=== PATIENT | female | born 1990 | race American Indian/Alaskan Native ===

== ENCOUNTER 2020-06-21 08:23 | Inpatient (IN) | payer MEDICAID ==
--- NOTE | 2020-06-21 08:34 | History and Physical Report ---
History of Present Illness Date of examination: 06/21/20 Chief complaint: TOLAC History of present illness: 29-year-old -0-1-4 at 39-5/7 weeks for trial of labor after section. Patient doing well with no OB complaints. She reports good movement with no loss of fluid contractions or vaginal bleeding. Informed consent was taken at bedside; patient was consented about risks benefits possible complications as well as alternatives to trial of labor after section to include but not limited to maternal and . Past History Past Surgical History: section [employer] History: chlamydia Social history: no significant social history - Obstetrical History Expected Date of Delivery: 06/23/20 Actual Gestation: 39 Week(s) 5 Day(s) : 6 Para: 4 Spontaneous Abortions: 1 Number of Living Children: 4 Medications and Allergies Allergies Allergy/AdvReac Type Severity Reaction Status Date / Time No Known Allergies Allergy Unverified 06/10/20 09:28 Home Medications Medication Instructions Recorded Confirmed Last Taken Type No Known Home Medications [No 06/21/20 06/21/20 Unknown History Reported Home Medications] Results Result Diagrams: 06/21/20 10:25 All other labs normal. Assessment and Plan IUP at 39-5/7 weeks, trial of labor after section Previous x1 Previous section x1 History of chlamydia Plan Admission Lab to include CBC and type and screen Ultrasound to confirm cephalic presentation Epidural prior to AROM and Pitocin Continuous monitoring Maternal wellbeing reassuring at bedside Cherelle Walter MD
[2020-06-21] MEDS ORDERED: ePHEDrine SULFATE 50 MG/1 ML INJ IV PRN (08:38)
[2020-06-21] MEDS ORDERED: TERBUTALINE 1 MG/1 ML INJ SUB-Q PRN (08:38)
[2020-06-21] MEDS ORDERED: LIDOCAINE (2%) 20 MG/1 ML VIAL 20 ML MDV INFILTRATI NR (08:38)
[2020-06-21] MEDS ORDERED: ONDANSETRON 4 MG/2 ML INJ IV PRN (08:38)
[2020-06-21] MEDS ORDERED: BUTORPHANOL 2 MG/1 ML INJ IV PRN ×2 (09:00)
[2020-06-21] MEDS ORDERED: fentaNYL 100 MCG/2 ML INJ IV PRN (09:00)
[2020-06-21] MEDS ORDERED: OXYTOCIN DRIP 30 UNITS/500 ML BAG IV SCH ×2 (09:00)
--- NOTE | 2020-06-21 10:08 | Ultrasound Report ---
ULTRASOUND OBSTETRIC LIMITED INDICATION / CLINICAL INFORMATION: presentation. TECHNIQUE: Transabdominal ultrasound imaging. COMPARISON: 06/10/2020 FINDINGS: HEART RATE (beats per minute): 134 AMNIOTIC FLUID INDEX (cm) = not measured PRESENTATION: Cephalic. ADDITIONAL FINDINGS: None. IMPRESSION: Cephalic presentation. Signer Name: Can Ray Jr, MD Signed: 06/21/2020 10:04 AM Workstation Name: [id number]
[2020-06-21] MEDS: LACTATED RINGERS 1,000 ML IV SCH ×4 (10:20→23:20)
[2020-06-21 11:09] LABS: Hematocrit 33.3 % (30.3-42.9); Hemoglobin 11.4 gm/dl (10.1-14.3); Mean Corpuscular HGB Conc 34 % (30-34); Mean Corpuscular Volume 88 fl (79-97); Platelet Count 283 K/mm3 (140-440); Red Cell Distribution Width 13.7 % (13.2-15.2)
[2020-06-21] MEDS ORDERED: NalbUPHINE 10 MG/1 ML INJ IV PRN (12:11)
[2020-06-21] MEDS ORDERED: NALOXONE 2 MG/2 ML INJ IV PRN (12:11)
--- NOTE | 2020-06-21 13:20 | Anesthesia Consultation ---
Anesthesia Consult and Med Hx Date of service: 06/21/20 - Airway Anesthetic Teeth Evaluation: Good ROM Head & Neck: Adequate Mental/Hyoid Distance: Adequate Mallampati Class: Class III Intubation Access Assessment: Possibly Difficult - Pulmonary Exam CTA: Yes - Cardiac Exam Cardiac Exam: RRR - Pre-Operative Health Status ASA Pre-Surgery Classification: ASA2, ASA3 Proposed Anesthetic Plan: Epidural - Pulmonary Hx Smoking: Yes Hx Asthma: No Hx Sleep Apnea: No - Cardiovascular System Hx Hypertension: No Hx Heart Attack/AMI: No Hx Angina: No - Central Nervous System Hx Seizures: No Hx Psychiatric Problems: No - Gastrointestinal Hx Gastroesophageal Reflux Disease: No - Endocrine Hx Renal Disease: No Hx Insulin Dependent Diabetes: No Hx Non-Insulin Dependent Diabetes: No Hx Hypothyroidism: No Hx Hyperthyroidism: No - Hematic Hx Anemia: No Hx Sickle Cell Disease: No - Other Systems Hx Alcohol Use: No Hx Obesity: Yes
--- NOTE | 2020-06-21 13:20 | Progress Note ---
Labor Epidural - Labor Epidural Start Time: 13:00 Stop Time: 13:15 Performed by:: ROYER HESTER ([facility]) Procedure: Patient is requesting epidural for labor and pain. H&P, labs were reviewed. Patient IDed, H&P reviewed, all questions and concerns were answered, and consent was signed. Timeout was performed at bedside. Patient in sitting position. Sterile prep and drape was performed. 3ml of 1% lidocaine skin wheal at L[3]- L [4]. 18-gauge Tuohy epidural needle was advanced to loss of resistance with air technique 10cm. Negative CSF negative blood. Epidural catheter advanced to [15] centimeters. [negative] Aspiration [negative] test dose. Sterile dressing applied. Patient tolerated procedure.
[2020-06-21] MEDS: fentaNYL-BUPIV 2 MCG/ML-0.125% 200 MCG/100 ML BAG EPIDURAL SCH (17:41)
--- NOTE | 2020-06-21 18:53 | Progress Note ---
Subjective - Subjective Date of service: 06/21/20 Interval history: AROM clear cervix 3cm/50/-3 vertex plan to continue oxyocin per protocol FHT 120bpm baseline,moderate variability, +ve accelerations Cherelle Walter MD Objective - Vital Signs Vital Signs: Vital Signs - 12hr 06/21/20 06/21/20 06/21/20 09:06 09:09 12:58 Temperature 98.4 F Pulse Rate 103 H 103 H 112 H Respiratory 16 Rate Blood Pressure 116/64 Blood Pressure 116/64 [Left] O2 Sat by Pulse 97 17 L 100 Oximetry 06/21/20 06/21/20 06/21/20 12:59 13:01 13:03 Temperature Pulse Rate 106 H 114 H Respiratory Rate Blood Pressure 121/63 Blood Pressure 121/63 [Left] O2 Sat by Pulse 100 Oximetry 06/21/20 06/21/20 06/21/20 13:04 13:08 13:09 Temperature Pulse Rate 114 H 110 H 109 H Respiratory Rate Blood Pressure 125/73 129/76 Blood Pressure [Left] O2 Sat by Pulse 100 Oximetry 06/21/20 06/21/20 06/21/20 13:13 13:14 13:18 Temperature Pulse Rate 108 H 102 H 112 H Respiratory Rate Blood Pressure 127/66 131/68 Blood Pressure [Left] O2 Sat by Pulse 100 100 Oximetry 06/21/20 06/21/20 06/21/20 13:20 13:23 13:25 Temperature Pulse Rate 103 H 107 H 110 H Respiratory Rate Blood Pressure 119/57 117/55 Blood Pressure [Left] O2 Sat by Pulse 100 Oximetry 06/21/20 06/21/20 06/21/20 13:28 13:31 13:33 Temperature Pulse Rate 106 H 106 H 104 H Respiratory Rate Blood Pressure 118/60 Blood Pressure [Left] O2 Sat by Pulse 100 100 Oximetry 06/21/20 06/21/20 06/21/20 13:35 13:38 13:43 Temperature Pulse Rate 111 H 109 H 103 H Respiratory Rate Blood Pressure 132/62 Blood Pressure [Left] O2 Sat by Pulse 100 100 Oximetry 06/21/20 06/21/20 06/21/20 13:48 13:53 13:58 Temperature Pulse Rate 100 H 100 H 97 H Respiratory Rate Blood Pressure 125/61 Blood Pressure [Left] O2 Sat by Pulse 100 100 99 Oximetry 06/21/20 06/21/20 06/21/20 14:03 14:07 14:08 Temperature Pulse Rate 95 H 93 H 94 H Respiratory Rate Blood Pressure 122/58 Blood Pressure [Left] O2 Sat by Pulse 99 99 Oximetry 06/21/20 06/21/20 06/21/20 14:13 14:18 14:23 Temperature Pulse Rate 93 H 93 H 92 H Respiratory Rate Blood Pressure 116/59 Blood Pressure [Left] O2 Sat by Pulse 99 97 98 Oximetry 06/21/20 06/21/20 06/21/20 14:28 14:33 14:38 Temperature Pulse Rate 96 H 101 H 100 H Respiratory Rate Blood Pressure Blood Pressure [Left] O2 Sat by Pulse 99 99 99 Oximetry 06/21/20 06/21/20 06/21/20 14:39 14:43 14:48 Temperature Pulse Rate 98 H 98 H 95 H Respiratory Rate Blood Pressure 118/56 Blood Pressure [Left] O2 Sat by Pulse 99 98 Oximetry 06/21/20 06/21/20 06/21/20 14:52 14:59 15:04 Temperature Pulse Rate 98 H 97 H 99 H Respiratory Rate Blood Pressure 114/56 Blood Pressure [Left] O2 Sat by Pulse 99 98 Oximetry 06/21/20 06/21/20 06/21/20 15:09 15:14 15:19 Temperature Pulse Rate 101 H 99 H 92 H Respiratory Rate Blood Pressure 121/59 Blood Pressure [Left] O2 Sat by Pulse 99 98 99 Oximetry 06/21/20 06/21/20 06/21/20 15:24 15:26 15:29 Temperature Pulse Rate 93 H 100 H 92 H Respiratory Rate Blood Pressure 128/58 Blood Pressure [Left] O2 Sat by Pulse 100 94 99 Oximetry 06/21/20 06/21/20 06/21/20 15:34 15:38 15:39 Temperature Pulse Rate 98 H 91 H 103 H Respiratory Rate Blood Pressure 109/56 Blood Pressure [Left] O2 Sat by Pulse 100 99 Oximetry 06/21/20 06/21/20 06/21/20 15:44 15:47 15:49 Temperature 98.5 F Pulse Rate 94 H 90 Respiratory Rate Blood Pressure Blood Pressure [Left] O2 Sat by Pulse 97 99 Oximetry 06/21/20 06/21/20 06/21/20 15:53 15:54 15:59 Temperature Pulse Rate 91 H 100 H 97 H Respiratory Rate Blood Pressure 128/62 Blood Pressure [Left] O2 Sat by Pulse 100 98 Oximetry 06/21/20 06/21/20 06/21/20 16:04 16:07 16:09 Temperature Pulse Rate 98 H 95 H 97 H Respiratory Rate Blood Pressure 112/58 Blood Pressure [Left] O2 Sat by Pulse 98 97 Oximetry 06/21/20 06/21/20 06/21/20 16:14 16:19 16:22 Temperature Pulse Rate 88 99 H 94 H Respiratory Rate Blood Pressure 110/57 Blood Pressure [Left] O2 Sat by Pulse 99 100 Oximetry 06/21/20 06/21/20 06/21/20 16:24 16:29 16:34 Temperature Pulse Rate 95 H 94 H 86 Respiratory Rate Blood Pressure Blood Pressure [Left] O2 Sat by Pulse 99 100 100 Oximetry 06/21/20 06/21/20 06/21/20 16:37 16:39 16:44 Temperature Pulse Rate 91 H 90 94 H Respiratory Rate Blood Pressure 115/55 Blood Pressure [Left] O2 Sat by Pulse 100 99 Oximetry 06/21/20 06/21/20 06/21/20 16:49 16:52 16:54 Temperature Pulse Rate 92 H 93 H 93 H Respiratory Rate Blood Pressure 111/57 Blood Pressure [Left] O2 Sat by Pulse 99 100 Oximetry 06/21/20 06/21/20 06/21/20 16:59 17:04 17:07 Temperature Pulse Rate 90 93 H 92 H Respiratory Rate Blood Pressure 108/52 Blood Pressure [Left] O2 Sat by Pulse 100 100 Oximetry 06/21/20 06/21/20 06/21/20 17:09 17:14 17:19 Temperature Pulse Rate 92 H 91 H 94 H Respiratory Rate Blood Pressure Blood Pressure [Left] O2 Sat by Pulse 99 100 100 Oximetry 06/21/20 06/21/20 06/21/20 17:23 17:24 17:29 Temperature Pulse Rate 91 H 94 H 98 H Respiratory Rate Blood Pressure 114/56 Blood Pressure [Left] O2 Sat by Pulse 100 100 Oximetry 06/21/20 06/21/20 06/21/20 17:34 17:39 17:44 Temperature Pulse Rate 107 H 116 H 98 H Respiratory Rate Blood Pressure Blood Pressure [Left] O2 Sat by Pulse 100 100 100 Oximetry 06/21/20 06/21/20 06/21/20 17:49 17:53 17:54 Temperature Pulse Rate 107 H 101 H 105 H Respiratory Rate Blood Pressure 130/60 Blood Pressure [Left] O2 Sat by Pulse 100 100 Oximetry 06/21/20 06/21/20 06/21/20 17:59 18:04 18:07 Temperature Pulse Rate 116 H 108 H 116 H Respiratory Rate Blood Pressure 119/54 Blood Pressure [Left] O2 Sat by Pulse 98 97 Oximetry 06/21/20 06/21/20 06/21/20 18:09 18:14 18:19 Temperature Pulse Rate 117 H 111 H 103 H Respiratory Rate Blood Pressure Blood Pressure [Left] O2 Sat by Pulse 98 98 97 Oximetry 06/21/20 06/21/20 06/21/20 18:23 18:24 18:29 Temperature Pulse Rate 96 H 103 H 101 H Respiratory Rate Blood Pressure 116/54 Blood Pressure [Left] O2 Sat by Pulse 97 98 Oximetry 06/21/20 06/21/20 06/21/20 18:34 18:37 18:39 Temperature Pulse Rate 96 H 99 H 102 H Respiratory Rate Blood Pressure 94/59 Blood Pressure [Left] O2 Sat by Pulse 97 100 Oximetry 06/21/20 18:47 Temperature Pulse Rate 100 H Respiratory Rate Blood Pressure Blood Pressure [Left] O2 Sat by Pulse 100 Oximetry - Labs Labs: Laboratory Results - last 24 hr 06/21/20 06/21/20 10:25 10:25 WBC 8.7 RBC 3.80 Hgb 11.4 Hct 33.3 MCV 88 MCH 30 MCHC 34 RDW 13.7 Plt Count 283 Blood Type A POSITIVE Antibody Screen Negative
[2020-06-21] MEDS ORDERED: MINERAL OIL 30 ML ORAL LIQD PO PRN (22:00)
[2020-06-22] MEDS: fentaNYL-BUPIV 2 MCG/ML-0.125% 200 MCG/100 ML BAG EPIDURAL SCH (01:49)
--- NOTE | 2020-06-22 01:53 | Progress Note ---
Subjective - Subjective Date of service: 06/22/20 Interval history: cervix 3cm/60/-3 IUPC placed with no complications. [place];irregular. continue to increase oxytocin as per protocol. FHT 120bpm baseline,moderate variability, +ve accelerations Cherelle Walter MD Objective - Vital Signs Vital Signs: Vital Signs - 12hr 06/21/20 06/21/20 06/21/20 13:53 13:58 14:03 Temperature Pulse Rate 100 H 97 H 95 H Blood Pressure 125/61 O2 Sat by Pulse 100 99 99 Oximetry 06/21/20 06/21/20 06/21/20 14:07 14:08 14:13 Temperature Pulse Rate 93 H 94 H 93 H Blood Pressure 122/58 O2 Sat by Pulse 99 99 Oximetry 06/21/20 06/21/20 06/21/20 14:18 14:23 14:28 Temperature Pulse Rate 93 H 92 H 96 H Blood Pressure 116/59 O2 Sat by Pulse 97 98 99 Oximetry 06/21/20 06/21/20 06/21/20 14:33 14:38 14:39 Temperature Pulse Rate 101 H 100 H 98 H Blood Pressure 118/56 O2 Sat by Pulse 99 99 Oximetry 06/21/20 06/21/20 06/21/20 14:43 14:48 14:52 Temperature Pulse Rate 98 H 95 H 98 H Blood Pressure 114/56 O2 Sat by Pulse 99 98 Oximetry 06/21/20 06/21/20 06/21/20 14:59 15:04 15:09 Temperature Pulse Rate 97 H 99 H 101 H Blood Pressure 121/59 O2 Sat by Pulse 99 98 99 Oximetry 06/21/20 06/21/20 06/21/20 15:14 15:19 15:24 Temperature Pulse Rate 99 H 92 H 93 H Blood Pressure 128/58 O2 Sat by Pulse 98 99 100 Oximetry 06/21/20 06/21/20 06/21/20 15:26 15:29 15:34 Temperature Pulse Rate 100 H 92 H 98 H Blood Pressure O2 Sat by Pulse 94 99 100 Oximetry 06/21/20 06/21/20 06/21/20 15:38 15:39 15:44 Temperature Pulse Rate 91 H 103 H 94 H Blood Pressure 109/56 O2 Sat by Pulse 99 97 Oximetry 06/21/20 06/21/20 06/21/20 15:47 15:49 15:53 Temperature 98.5 F Pulse Rate 90 91 H Blood Pressure 128/62 O2 Sat by Pulse 99 Oximetry 06/21/20 06/21/20 06/21/20 15:54 15:59 16:04 Temperature Pulse Rate 100 H 97 H 98 H Blood Pressure O2 Sat by Pulse 100 98 98 Oximetry 06/21/20 06/21/20 06/21/20 16:07 16:09 16:14 Temperature Pulse Rate 95 H 97 H 88 Blood Pressure 112/58 O2 Sat by Pulse 97 99 Oximetry 06/21/20 06/21/20 06/21/20 16:19 16:22 16:24 Temperature Pulse Rate 99 H 94 H 95 H Blood Pressure 110/57 O2 Sat by Pulse 100 99 Oximetry 06/21/20 06/21/20 06/21/20 16:29 16:34 16:37 Temperature Pulse Rate 94 H 86 91 H Blood Pressure 115/55 O2 Sat by Pulse 100 100 Oximetry 06/21/20 06/21/20 06/21/20 16:39 16:44 16:49 Temperature Pulse Rate 90 94 H 92 H Blood Pressure O2 Sat by Pulse 100 99 99 Oximetry 06/21/20 06/21/20 06/21/20 16:52 16:54 16:59 Temperature Pulse Rate 93 H 93 H 90 Blood Pressure 111/57 O2 Sat by Pulse 100 100 Oximetry 06/21/20 06/21/20 06/21/20 17:04 17:07 17:09 Temperature Pulse Rate 93 H 92 H 92 H Blood Pressure 108/52 O2 Sat by Pulse 100 99 Oximetry 06/21/20 06/21/20 06/21/20 17:14 17:19 17:23 Temperature Pulse Rate 91 H 94 H 91 H Blood Pressure 114/56 O2 Sat by Pulse 100 100 Oximetry 06/21/20 06/21/20 06/21/20 17:24 17:29 17:34 Temperature Pulse Rate 94 H 98 H 107 H Blood Pressure O2 Sat by Pulse 100 100 100 Oximetry 06/21/20 06/21/20 06/21/20 17:39 17:44 17:49 Temperature Pulse Rate 116 H 98 H 107 H Blood Pressure O2 Sat by Pulse 100 100 100 Oximetry 06/21/20 06/21/20 06/21/20 17:53 17:54 17:59 Temperature Pulse Rate 101 H 105 H 116 H Blood Pressure 130/60 O2 Sat by Pulse 100 98 Oximetry 06/21/20 06/21/20 06/21/20 18:04 18:07 18:09 Temperature Pulse Rate 108 H 116 H 117 H Blood Pressure 119/54 O2 Sat by Pulse 97 98 Oximetry 06/21/20 06/21/20 06/21/20 18:14 18:19 18:23 Temperature Pulse Rate 111 H 103 H 96 H Blood Pressure 116/54 O2 Sat by Pulse 98 97 Oximetry 06/21/20 06/21/20 06/21/20 18:24 18:29 18:34 Temperature Pulse Rate 103 H 101 H 96 H Blood Pressure O2 Sat by Pulse 97 98 97 Oximetry 06/21/20 06/21/20 06/21/20 18:37 18:39 18:47 Temperature Pulse Rate 99 H 102 H 100 H Blood Pressure 94/59 O2 Sat by Pulse 100 100 Oximetry 06/21/20 06/21/20 06/21/20 18:52 18:53 18:57 Temperature Pulse Rate 98 H 98 H 102 H Blood Pressure 95/45 O2 Sat by Pulse 100 100 Oximetry 06/21/20 06/21/20 06/21/20 19:02 19:07 19:12 Temperature Pulse Rate 92 H 92 H 100 H Blood Pressure 103/49 96/43 O2 Sat by Pulse 99 100 98 Oximetry 06/21/20 06/21/20 06/21/20 19:17 19:22 19:23 Temperature Pulse Rate 95 H 101 H 102 H Blood Pressure 111/60 O2 Sat by Pulse 99 98 Oximetry 06/21/20 06/21/20 06/21/20 19:27 19:32 19:37 Temperature Pulse Rate 95 H 94 H 95 H Blood Pressure O2 Sat by Pulse 99 98 100 Oximetry 06/21/20 06/21/20 06/21/20 19:39 19:43 19:48 Temperature Pulse Rate 101 H 100 H 98 H Blood Pressure 121/73 O2 Sat by Pulse 100 100 Oximetry 06/21/20 06/21/20 06/21/20 19:52 19:53 19:58 Temperature Pulse Rate 93 H 106 H 103 H Blood Pressure 109/55 O2 Sat by Pulse 100 100 Oximetry 06/21/20 06/21/20 06/21/20 20:03 20:08 20:13 Temperature Pulse Rate 92 H 106 H 101 H Blood Pressure 104/51 O2 Sat by Pulse 100 100 100 Oximetry 06/21/20 06/21/20 06/21/20 20:18 20:22 20:23 Temperature Pulse Rate 95 H 101 H 89 Blood Pressure 98/50 O2 Sat by Pulse 100 100 Oximetry 06/21/20 06/21/20 06/21/20 20:28 20:35 20:38 Temperature Pulse Rate 103 H 110 H 104 H Blood Pressure 100/51 O2 Sat by Pulse 100 100 Oximetry 06/21/20 06/21/20 06/21/20 20:40 20:45 20:50 Temperature Pulse Rate 112 H 101 H 100 H Blood Pressure O2 Sat by Pulse 100 100 95 Oximetry 06/21/20 06/21/20 06/21/20 20:55 20:56 21:00 Temperature Pulse Rate 95 H 104 H 113 H Blood Pressure O2 Sat by Pulse 98 86 98 Oximetry 06/21/20 06/21/20 06/21/20 21:01 21:05 22:41 Temperature Pulse Rate 114 H 98 H 105 H Blood Pressure O2 Sat by Pulse 77 L 98 99 Oximetry 06/21/20 06/21/20 06/21/20 22:46 22:48 22:51 Temperature Pulse Rate 87 103 H 104 H Blood Pressure 105/58 O2 Sat by Pulse 98 98 Oximetry 06/21/20 06/21/20 06/21/20 22:56 23:01 23:06 Temperature Pulse Rate 117 H 111 H 111 H Blood Pressure O2 Sat by Pulse 100 98 98 Oximetry 06/21/20 06/21/20 06/21/20 23:11 23:16 23:21 Temperature Pulse Rate 103 H 104 H 110 H Blood Pressure O2 Sat by Pulse 99 99 100 Oximetry 06/21/20 06/21/20 06/21/20 23:26 23:31 23:36 Temperature Pulse Rate 109 H 101 H 104 H Blood Pressure O2 Sat by Pulse 100 86 100 Oximetry 06/21/20 06/21/20 06/21/20 23:41 23:42 23:46 Temperature Pulse Rate 114 H 46 L 99 H Blood Pressure O2 Sat by Pulse 99 64 L 100 Oximetry 06/21/20 06/21/20 06/22/20 23:51 23:56 00:01 Temperature Pulse Rate 95 H 100 H 94 H Blood Pressure O2 Sat by Pulse 100 100 100 Oximetry 06/22/20 06/22/20 06/22/20 00:06 00:11 00:16 Temperature Pulse Rate 96 H 105 H 103 H Blood Pressure O2 Sat by Pulse 100 100 98 Oximetry 06/22/20 06/22/20 06/22/20 00:21 00:26 00:31 Temperature Pulse Rate 117 H 95 H 97 H Blood Pressure O2 Sat by Pulse 99 100 99 Oximetry 06/22/20 06/22/20 06/22/20 00:36 00:41 00:46 Temperature Pulse Rate 93 H 89 89 Blood Pressure O2 Sat by Pulse 100 100 99 Oximetry 06/22/20 06/22/20 06/22/20 00:47 00:51 00:56 Temperature Pulse Rate 95 H 90 94 H Blood Pressure 95/50 O2 Sat by Pulse 96 100 Oximetry 06/22/20 06/22/20 06/22/20 01:01 01:03 01:06 Temperature Pulse Rate 92 H 62 105 H Blood Pressure O2 Sat by Pulse 100 64 L 100 Oximetry 06/22/20 06/22/20 06/22/20 01:11 01:16 01:21 Temperature Pulse Rate 112 H 94 H 115 H Blood Pressure O2 Sat by Pulse 98 99 96 Oximetry 06/22/20 06/22/20 06/22/20 01:23 01:26 01:31 Temperature Pulse Rate 112 H 98 H 98 H Blood Pressure O2 Sat by Pulse 91 100 100 Oximetry 06/22/20 06/22/20 06/22/20 01:36 01:40 01:41 Temperature Pulse Rate 100 H 101 H 95 H Blood Pressure O2 Sat by Pulse 99 79 L 98 Oximetry 06/22/20 01:46 Temperature Pulse Rate 98 H Blood Pressure O2 Sat by Pulse 97 Oximetry - Labs Labs: Laboratory Results - last 24 hr 06/21/20 06/21/20 10:25 10:25 WBC 8.7 RBC 3.80 Hgb 11.4 Hct 33.3 MCV 88 MCH 30 MCHC 34 RDW 13.7 Plt Count 283 Blood Type A POSITIVE Antibody Screen Negative
[2020-06-22] MEDS: diphenhydrAMINE 50 MG/ML VIAL IV PRN ×2 (02:25→14:28)
--- NOTE | 2020-06-22 03:47 | Progress Note ---
Subjective - Subjective Date of service: 06/22/20 Interval history: cervix 3cm/60/-3 IUPC readjusted [place];irregular. Oxuytocin at 8mu continue to increase oxytocin as per protocol. FHT 120bpm baseline,moderate variability, +ve accelerations Cherelle Walter MD Objective - Vital Signs Vital Signs: Vital Signs - 12hr 06/21/20 06/21/20 06/21/20 15:47 15:49 15:53 Temperature 98.5 F Pulse Rate 90 91 H Blood Pressure 128/62 O2 Sat by Pulse 99 Oximetry 06/21/20 06/21/20 06/21/20 15:54 15:59 16:04 Temperature Pulse Rate 100 H 97 H 98 H Blood Pressure O2 Sat by Pulse 100 98 98 Oximetry 06/21/20 06/21/20 06/21/20 16:07 16:09 16:14 Temperature Pulse Rate 95 H 97 H 88 Blood Pressure 112/58 O2 Sat by Pulse 97 99 Oximetry 06/21/20 06/21/20 06/21/20 16:19 16:22 16:24 Temperature Pulse Rate 99 H 94 H 95 H Blood Pressure 110/57 O2 Sat by Pulse 100 99 Oximetry 06/21/20 06/21/20 06/21/20 16:29 16:34 16:37 Temperature Pulse Rate 94 H 86 91 H Blood Pressure 115/55 O2 Sat by Pulse 100 100 Oximetry 06/21/20 06/21/20 06/21/20 16:39 16:44 16:49 Temperature Pulse Rate 90 94 H 92 H Blood Pressure O2 Sat by Pulse 100 99 99 Oximetry 06/21/20 06/21/20 06/21/20 16:52 16:54 16:59 Temperature Pulse Rate 93 H 93 H 90 Blood Pressure 111/57 O2 Sat by Pulse 100 100 Oximetry 06/21/20 06/21/20 06/21/20 17:04 17:07 17:09 Temperature Pulse Rate 93 H 92 H 92 H Blood Pressure 108/52 O2 Sat by Pulse 100 99 Oximetry 06/21/20 06/21/20 06/21/20 17:14 17:19 17:23 Temperature Pulse Rate 91 H 94 H 91 H Blood Pressure 114/56 O2 Sat by Pulse 100 100 Oximetry 03/23/21 03/23/21 03/23/21 17:24 17:29 17:34 Temperature Pulse Rate 94 H 98 H 107 H Blood Pressure O2 Sat by Pulse 100 100 100 Oximetry 06/21/20 06/21/20 06/21/20 17:39 17:44 17:49 Temperature Pulse Rate 116 H 98 H 107 H Blood Pressure O2 Sat by Pulse 100 100 100 Oximetry 06/21/20 06/21/20 06/21/20 17:53 17:54 17:59 Temperature Pulse Rate 101 H 105 H 116 H Blood Pressure 130/60 O2 Sat by Pulse 100 98 Oximetry 06/21/20 06/21/20 06/21/20 18:04 18:07 18:09 Temperature Pulse Rate 108 H 116 H 117 H Blood Pressure 119/54 O2 Sat by Pulse 97 98 Oximetry 06/21/20 06/21/20 06/21/20 18:14 18:19 18:23 Temperature Pulse Rate 111 H 103 H 96 H Blood Pressure 116/54 O2 Sat by Pulse 98 97 Oximetry 06/21/20 06/21/20 06/21/20 18:24 18:29 18:34 Temperature Pulse Rate 103 H 101 H 96 H Blood Pressure O2 Sat by Pulse 97 98 97 Oximetry 06/21/20 06/21/20 06/21/20 18:37 18:39 18:47 Temperature Pulse Rate 99 H 102 H 100 H Blood Pressure 94/59 O2 Sat by Pulse 100 100 Oximetry 06/21/20 06/21/20 06/21/20 18:52 18:53 18:57 Temperature Pulse Rate 98 H 98 H 102 H Blood Pressure 95/45 O2 Sat by Pulse 100 100 Oximetry 06/21/20 06/21/20 06/21/20 19:02 19:07 19:12 Temperature Pulse Rate 92 H 92 H 100 H Blood Pressure 103/49 96/43 O2 Sat by Pulse 99 100 98 Oximetry 06/21/20 06/21/20 06/21/20 19:17 19:22 19:23 Temperature Pulse Rate 95 H 101 H 102 H Blood Pressure 111/60 O2 Sat by Pulse 99 98 Oximetry 06/21/20 06/21/20 06/21/20 19:27 19:32 19:37 Temperature Pulse Rate 95 H 94 H 95 H Blood Pressure O2 Sat by Pulse 99 98 100 Oximetry 06/21/20 06/21/20 06/21/20 19:39 19:43 19:48 Temperature Pulse Rate 101 H 100 H 98 H Blood Pressure 121/73 O2 Sat by Pulse 100 100 Oximetry 06/21/20 06/21/20 06/21/20 19:52 19:53 19:58 Temperature Pulse Rate 93 H 106 H 103 H Blood Pressure 109/55 O2 Sat by Pulse 100 100 Oximetry 06/21/20 06/21/20 06/21/20 20:03 20:08 20:13 Temperature Pulse Rate 92 H 106 H 101 H Blood Pressure 104/51 O2 Sat by Pulse 100 100 100 Oximetry 06/21/20 06/21/20 06/21/20 20:18 20:22 20:23 Temperature Pulse Rate 95 H 101 H 89 Blood Pressure 98/50 O2 Sat by Pulse 100 100 Oximetry 06/21/20 06/21/20 06/21/20 20:28 20:35 20:38 Temperature Pulse Rate 103 H 110 H 104 H Blood Pressure 100/51 O2 Sat by Pulse 100 100 Oximetry 06/21/20 06/21/20 06/21/20 20:40 20:45 20:50 Temperature Pulse Rate 112 H 101 H 100 H Blood Pressure O2 Sat by Pulse 100 100 95 Oximetry 06/21/20 06/21/20 06/21/20 20:55 20:56 21:00 Temperature Pulse Rate 95 H 104 H 113 H Blood Pressure O2 Sat by Pulse 98 86 98 Oximetry 06/21/20 06/21/20 06/21/20 21:01 21:05 22:41 Temperature Pulse Rate 114 H 98 H 105 H Blood Pressure O2 Sat by Pulse 77 L 98 99 Oximetry 06/21/20 06/21/20 06/21/20 22:46 22:48 22:51 Temperature Pulse Rate 87 103 H 104 H Blood Pressure 105/58 O2 Sat by Pulse 98 98 Oximetry 06/21/20 06/21/20 06/21/20 22:56 23:01 23:06 Temperature Pulse Rate 117 H 111 H 111 H Blood Pressure O2 Sat by Pulse 100 98 98 Oximetry 06/21/20 06/21/20 06/21/20 23:11 23:16 23:21 Temperature Pulse Rate 103 H 104 H 110 H Blood Pressure O2 Sat by Pulse 99 99 100 Oximetry 06/21/20 06/21/20 06/21/20 23:26 23:31 23:36 Temperature Pulse Rate 109 H 101 H 104 H Blood Pressure O2 Sat by Pulse 100 86 100 Oximetry 06/21/20 06/21/20 06/21/20 23:41 23:42 23:46 Temperature Pulse Rate 114 H 46 L 99 H Blood Pressure O2 Sat by Pulse 99 64 L 100 Oximetry 06/21/20 06/21/20 06/22/20 23:51 23:56 00:01 Temperature Pulse Rate 95 H 100 H 94 H Blood Pressure O2 Sat by Pulse 100 100 100 Oximetry 06/22/20 06/22/20 06/22/20 00:06 00:11 00:16 Temperature Pulse Rate 96 H 105 H 103 H Blood Pressure O2 Sat by Pulse 100 100 98 Oximetry 06/22/20 06/22/20 06/22/20 00:21 00:26 00:31 Temperature Pulse Rate 117 H 95 H 97 H Blood Pressure O2 Sat by Pulse 99 100 99 Oximetry 06/22/20 06/22/20 06/22/20 00:36 00:41 00:46 Temperature Pulse Rate 93 H 89 89 Blood Pressure O2 Sat by Pulse 100 100 99 Oximetry 06/22/20 06/22/20 06/22/20 00:47 00:51 00:56 Temperature Pulse Rate 95 H 90 94 H Blood Pressure 95/50 O2 Sat by Pulse 96 100 Oximetry 06/22/20 06/22/20 06/22/20 01:01 01:03 01:06 Temperature Pulse Rate 92 H 62 105 H Blood Pressure O2 Sat by Pulse 100 64 L 100 Oximetry 06/22/20 06/22/20 06/22/20 01:11 01:16 01:21 Temperature Pulse Rate 112 H 94 H 115 H Blood Pressure O2 Sat by Pulse 98 99 96 Oximetry 06/22/20 06/22/20 06/22/20 01:23 01:26 01:31 Temperature Pulse Rate 112 H 98 H 98 H Blood Pressure O2 Sat by Pulse 91 100 100 Oximetry 06/22/20 06/22/20 06/22/20 01:36 01:40 01:41 Temperature Pulse Rate 100 H 101 H 95 H Blood Pressure O2 Sat by Pulse 99 79 L 98 Oximetry 06/22/20 06/22/20 06/22/20 01:46 01:51 01:56 Temperature Pulse Rate 98 H 101 H 111 H Blood Pressure O2 Sat by Pulse 97 99 73 L Oximetry 06/22/20 06/22/20 06/22/20 02:01 02:06 02:08 Temperature Pulse Rate 60 103 H 91 H Blood Pressure O2 Sat by Pulse 62 L 100 75 L Oximetry 06/22/20 06/22/20 06/22/20 02:11 02:16 02:21 Temperature Pulse Rate 103 H 117 H 103 H Blood Pressure O2 Sat by Pulse 100 83 L 99 Oximetry 06/22/20 06/22/20 06/22/20 02:26 02:27 02:31 Temperature Pulse Rate 105 H 107 H 114 H Blood Pressure O2 Sat by Pulse 98 94 96 Oximetry 06/22/20 06/22/20 06/22/20 02:36 02:41 02:46 Temperature Pulse Rate 102 H 93 H 97 H Blood Pressure O2 Sat by Pulse 100 99 99 Oximetry 06/22/20 06/22/20 06/22/20 02:51 02:56 02:57 Temperature Pulse Rate 95 H 98 H 96 H Blood Pressure O2 Sat by Pulse 99 100 87 Oximetry 06/22/20 06/22/20 06/22/20 03:01 03:06 03:11 Temperature Pulse Rate 98 H 97 H 101 H Blood Pressure O2 Sat by Pulse 98 100 99 Oximetry 06/22/20 06/22/20 06/22/20 03:16 03:21 03:26 Temperature Pulse Rate 97 H 98 H 109 H Blood Pressure 135/65 O2 Sat by Pulse 99 100 99 Oximetry 06/22/20 06/22/20 06/22/20 03:31 03:36 03:41 Temperature Pulse Rate 97 H 97 H 101 H Blood Pressure O2 Sat by Pulse 99 99 100 Oximetry - Labs Labs: Laboratory Results - last 24 hr 06/21/20 06/21/20 10:25 10:25 WBC 8.7 RBC 3.80 Hgb 11.4 Hct 33.3 MCV 88 MCH 30 MCHC 34 RDW 13.7 Plt Count 283 Blood Type A POSITIVE Antibody Screen Negative
--- NOTE | 2020-06-22 11:09 | Progress Note ---
Subjective - Subjective Date of service: 06/22/20 Interval history: cervix 4cm/80/-3 IUPC readjusted [place]:irregular. Oxytocin at 20mu/min FHT 120bpm baseline,moderate variability, +ve accelerations Cherelle Walter MD Objective - Vital Signs Vital Signs: Vital Signs - 12hr 06/21/20 06/21/20 06/21/20 23:11 23:16 23:20 Temperature 98.6 F Pulse Rate 103 H 104 H Blood Pressure O2 Sat by Pulse 99 99 Oximetry 06/21/20 06/21/20 06/21/20 23:21 23:26 23:31 Temperature Pulse Rate 110 H 109 H 101 H Blood Pressure O2 Sat by Pulse 100 100 86 Oximetry 06/21/20 06/21/20 06/21/20 23:36 23:41 23:42 Temperature Pulse Rate 104 H 114 H 46 L Blood Pressure O2 Sat by Pulse 100 99 64 L Oximetry 06/21/20 06/21/20 06/21/20 23:46 23:51 23:56 Temperature Pulse Rate 99 H 95 H 100 H Blood Pressure O2 Sat by Pulse 100 100 100 Oximetry 06/22/20 06/22/20 06/22/20 00:01 00:06 00:11 Temperature Pulse Rate 94 H 96 H 105 H Blood Pressure O2 Sat by Pulse 100 100 100 Oximetry 06/22/20 06/22/20 06/22/20 00:16 00:21 00:26 Temperature Pulse Rate 103 H 117 H 95 H Blood Pressure O2 Sat by Pulse 98 99 100 Oximetry 06/22/20 06/22/20 06/22/20 00:31 00:36 00:41 Temperature Pulse Rate 97 H 93 H 89 Blood Pressure O2 Sat by Pulse 99 100 100 Oximetry 06/22/20 06/22/20 06/22/20 00:46 00:47 00:51 Temperature Pulse Rate 89 95 H 90 Blood Pressure 95/50 O2 Sat by Pulse 99 96 Oximetry 06/22/20 06/22/20 06/22/20 00:56 01:01 01:03 Temperature Pulse Rate 94 H 92 H 62 Blood Pressure O2 Sat by Pulse 100 100 64 L Oximetry 06/22/20 06/22/20 06/22/20 01:06 01:11 01:16 Temperature Pulse Rate 105 H 112 H 94 H Blood Pressure O2 Sat by Pulse 100 98 99 Oximetry 06/22/20 06/22/20 06/22/20 01:20 01:21 01:23 Temperature 98.2 F Pulse Rate 115 H 112 H Blood Pressure O2 Sat by Pulse 96 91 Oximetry 06/22/20 06/22/20 06/22/20 01:26 01:31 01:36 Temperature Pulse Rate 98 H 98 H 100 H Blood Pressure O2 Sat by Pulse 100 100 99 Oximetry 06/22/20 06/22/20 06/22/20 01:40 01:41 01:46 Temperature Pulse Rate 101 H 95 H 98 H Blood Pressure O2 Sat by Pulse 79 L 98 97 Oximetry 06/22/20 06/22/20 06/22/20 01:51 01:56 02:01 Temperature Pulse Rate 101 H 111 H 60 Blood Pressure O2 Sat by Pulse 99 73 L 62 L Oximetry 06/22/20 06/22/20 06/22/20 02:06 02:08 02:11 Temperature Pulse Rate 103 H 91 H 103 H Blood Pressure O2 Sat by Pulse 100 75 L 100 Oximetry 06/22/20 06/22/20 06/22/20 02:16 02:21 02:26 Temperature Pulse Rate 117 H 103 H 105 H Blood Pressure O2 Sat by Pulse 83 L 99 98 Oximetry 06/22/20 06/22/20 06/22/20 02:27 02:31 02:36 Temperature Pulse Rate 107 H 114 H 102 H Blood Pressure O2 Sat by Pulse 94 96 100 Oximetry 06/22/20 06/22/20 06/22/20 02:41 02:46 02:51 Temperature Pulse Rate 93 H 97 H 95 H Blood Pressure O2 Sat by Pulse 99 99 99 Oximetry 06/22/20 06/22/20 06/22/20 02:56 02:57 03:01 Temperature Pulse Rate 98 H 96 H 98 H Blood Pressure O2 Sat by Pulse 100 87 98 Oximetry 06/22/20 06/22/20 06/22/20 03:06 03:11 03:16 Temperature Pulse Rate 97 H 101 H 97 H Blood Pressure O2 Sat by Pulse 100 99 99 Oximetry 06/22/20 06/22/20 06/22/20 03:20 03:21 03:26 Temperature 98.4 F Pulse Rate 98 H 109 H Blood Pressure 135/65 O2 Sat by Pulse 100 99 Oximetry 06/22/20 06/22/20 06/22/20 03:31 03:36 03:41 Temperature Pulse Rate 97 H 97 H 101 H Blood Pressure O2 Sat by Pulse 99 99 100 Oximetry 06/22/20 06/22/20 06/22/20 03:46 03:51 03:56 Temperature Pulse Rate 103 H 100 H 98 H Blood Pressure O2 Sat by Pulse 98 98 99 Oximetry 06/22/20 06/22/20 06/22/20 04:01 04:06 04:11 Temperature Pulse Rate 102 H 102 H 105 H Blood Pressure O2 Sat by Pulse 99 100 99 Oximetry 06/22/20 06/22/20 06/22/20 04:16 04:21 04:26 Temperature Pulse Rate 104 H 100 H 100 H Blood Pressure O2 Sat by Pulse 99 100 97 Oximetry 06/22/20 06/22/20 06/22/20 04:31 04:36 04:41 Temperature Pulse Rate 100 H 97 H 98 H Blood Pressure O2 Sat by Pulse 99 98 98 Oximetry 06/22/20 06/22/20 06/22/20 04:46 04:47 04:51 Temperature Pulse Rate 95 H 95 H 95 H Blood Pressure 123/55 O2 Sat by Pulse 99 96 Oximetry 06/22/20 06/22/20 06/22/20 04:55 04:57 05:02 Temperature Pulse Rate 95 H 100 H 106 H Blood Pressure O2 Sat by Pulse 94 98 97 Oximetry 06/22/20 06/22/20 06/22/20 05:07 05:12 05:14 Temperature Pulse Rate 104 H 95 H 107 H Blood Pressure O2 Sat by Pulse 99 96 72 L Oximetry 06/22/20 06/22/20 06/22/20 05:17 05:20 05:22 Temperature 98.2 F Pulse Rate 105 H 106 H Blood Pressure O2 Sat by Pulse 97 98 Oximetry 06/22/20 06/22/20 06/22/20 05:27 05:32 05:37 Temperature Pulse Rate 103 H 98 H 97 H Blood Pressure O2 Sat by Pulse 98 93 96 Oximetry 06/22/20 06/22/20 06/22/20 05:42 05:47 05:52 Temperature Pulse Rate 98 H 99 H 93 H Blood Pressure O2 Sat by Pulse 96 96 96 Oximetry 06/22/20 06/22/20 06/22/20 05:57 05:59 06:02 Temperature Pulse Rate 91 H 95 H 95 H Blood Pressure O2 Sat by Pulse 96 94 96 Oximetry 06/22/20 06/22/20 06/22/20 06:06 06:07 06:12 Temperature Pulse Rate 92 H 92 H 93 H Blood Pressure O2 Sat by Pulse 94 95 96 Oximetry 06/22/20 06/22/20 06/22/20 06:17 06:22 06:27 Temperature Pulse Rate 88 98 H 91 H Blood Pressure O2 Sat by Pulse 97 97 97 Oximetry 06/22/20 06/22/20 06/22/20 06:32 06:37 06:40 Temperature Pulse Rate 96 H 108 H 76 Blood Pressure O2 Sat by Pulse 99 98 90 Oximetry 06/22/20 06/22/20 06/22/20 06:42 06:47 06:52 Temperature Pulse Rate 97 H 88 92 H Blood Pressure 117/55 O2 Sat by Pulse 98 98 98 Oximetry 06/22/20 06/22/20 06/22/20 06:57 07:02 07:07 Temperature Pulse Rate 91 H 88 95 H Blood Pressure O2 Sat by Pulse 98 97 98 Oximetry 06/22/20 06/22/20 06/22/20 07:12 07:17 07:22 Temperature Pulse Rate 105 H 94 H 96 H Blood Pressure O2 Sat by Pulse 96 98 98 Oximetry 06/22/20 06/22/20 06/22/20 07:27 07:32 07:37 Temperature Pulse Rate 95 H 90 84 Blood Pressure O2 Sat by Pulse 99 98 99 Oximetry 06/22/20 06/22/20 06/22/20 07:42 07:47 07:52 Temperature Pulse Rate 89 88 86 Blood Pressure O2 Sat by Pulse 99 99 99 Oximetry 06/22/20 06/22/20 06/22/20 07:57 08:00 08:04 Temperature Pulse Rate 102 H 67 83 Blood Pressure O2 Sat by Pulse 100 0 L 97 Oximetry 06/22/20 06/22/20 06/22/20 08:08 08:09 08:14 Temperature Pulse Rate 103 H 103 H 93 H Blood Pressure O2 Sat by Pulse 93 100 99 Oximetry 06/22/20 06/22/20 06/22/20 08:19 08:24 08:29 Temperature Pulse Rate 91 H 90 91 H Blood Pressure O2 Sat by Pulse 100 98 100 Oximetry 06/22/20 06/22/20 06/22/20 08:34 08:38 08:39 Temperature Pulse Rate 98 H 52 L 98 H Blood Pressure O2 Sat by Pulse 99 84 100 Oximetry 06/22/20 06/22/20 06/22/20 08:44 08:47 08:48 Temperature Pulse Rate 96 H 95 H 115 H Blood Pressure 113/59 O2 Sat by Pulse 99 86 Oximetry 06/22/20 06/22/20 06/22/20 08:49 08:54 08:59 Temperature Pulse Rate 105 H 99 H 95 H Blood Pressure O2 Sat by Pulse 98 100 98 Oximetry 06/22/20 06/22/20 06/22/20 09:04 09:09 09:14 Temperature Pulse Rate 103 H 89 85 Blood Pressure O2 Sat by Pulse 100 100 100 Oximetry 06/22/20 06/22/20 06/22/20 09:16 09:19 09:24 Temperature Pulse Rate 110 H 99 H 99 H Blood Pressure O2 Sat by Pulse 63 L 100 100 Oximetry 06/22/20 06/22/20 06/22/20 09:29 09:34 09:39 Temperature Pulse Rate 103 H 94 H 98 H Blood Pressure O2 Sat by Pulse 100 100 100 Oximetry 06/22/20 06/22/20 06/22/20 09:44 09:49 09:54 Temperature Pulse Rate 98 H 95 H 113 H Blood Pressure O2 Sat by Pulse 99 100 100 Oximetry 06/22/20 06/22/20 06/22/20 09:59 10:04 10:09 Temperature Pulse Rate 98 H 97 H 94 H Blood Pressure O2 Sat by Pulse 100 99 98 Oximetry 06/22/20 06/22/20 06/22/20 10:14 10:19 10:24 Temperature Pulse Rate 83 85 89 Blood Pressure O2 Sat by Pulse 99 99 99 Oximetry 06/22/20 06/22/20 06/22/20 10:29 10:34 10:39 Temperature Pulse Rate 96 H 106 H 96 H Blood Pressure O2 Sat by Pulse 100 100 99 Oximetry 06/22/20 06/22/20 06/22/20 10:44 10:47 10:49 Temperature Pulse Rate 101 H 98 H 103 H Blood Pressure 109/59 O2 Sat by Pulse 100 100 Oximetry 06/22/20 06/22/2006/22/21 10:54 10:59 11:04 Temperature Pulse Rate 95 H 96 H 95 H Blood Pressure O2 Sat by Pulse 100 98 97 Oximetry - Labs Labs: Laboratory Results - last 24 hr 06/21/20 06/21/20 10:25 10:25 WBC 8.7 RBC 3.80 Hgb 11.4 Hct 33.3 MCV 88 MCH 30 MCHC 34 RDW 13.7 Plt Count 283 Blood Type A POSITIVE Antibody Screen Negative
[2020-06-22] MEDS ORDERED: OXYTOCIN 10 UNIT/1 ML INJ ONE (18:42)
[2020-06-22] MEDS ORDERED: PROMETHAZINE 25 MG TAB PO PRN (18:53)
[2020-06-22] MEDS ORDERED: PROMETHAZINE 25 MG RECT SUPP PR PRN (18:53)
[2020-06-22] MEDS ORDERED: WITCH HAZEL/ GLYCERIN PAD TP PRN (18:53)
[2020-06-22] MEDS ORDERED: METHYLERGONOVINE MALEATE 0.2 MG/ML VIAL IM PRN (18:53)
[2020-06-22] MEDS ORDERED: diphenhydrAMINE 25 MG CAP PO PRN (18:53)
[2020-06-22] MEDS ORDERED: LANOLIN/ZINC/DIMETHICONE (LANSINOH) 7 GM TP PRN ×2 (18:53)
[2020-06-22] MEDS ORDERED: ONDANSETRON 4 MG/2 ML INJ IV PRN (18:53)
[2020-06-22] MEDS ORDERED: MAGNESIUM HYDROXIDE (MOM) ORAL LIQD UDC PO PRN (18:53)
[2020-06-22] MEDS ORDERED: BENZOCAINE/MENTHOL 20/0.5% TOP SPRAY 56 GM TP PRN (18:53)
--- NOTE | 2020-06-22 18:53 | Procedure Note ---
OB Delivery Note - Delivery Date of Delivery: 06/22/20 Surgeon: ISRA SOARES Estimated blood loss: 100cc - Vaginal Delivery presentation: vertex Delivery position: OA Delivery augmentation: pitocin Delivery monitor: external FHT Route of delivery: Delivery placenta: spontaneous Delivery cord: nuchal cord, 3 umbilical vessels Episiotomy: none Delivery laceration: none Anesthesia: epidural Delivery comments: Anterior shoulder delivered without difficulty. Nuchal cord x1 reduced. Baby bulb suctioned at the perineum and again after delivery. Delayed cord clamping and cut. Baby to the mother and then the warmer. Placenta delivered spontaneously and was delivered in its entirety. No lacs. Good hemostasis throughout. Mother and baby stable. - A at 1 minute: 9 at 5 minutes: 9 Infant Gender: Male
[2020-06-22] MEDS: IBUPROFEN 600 MG TAB PO SCH (20:19)
[2020-06-23] MEDS: IBUPROFEN 600 MG TAB PO SCH ×3 (01:35→17:42)
[2020-06-23] MEDS ORDERED: DIPHtheria,PERTUSSIS(ACELL),TETANUS VACCINE/PF 0.5 ML VIAL IM ONE (06:14)
[2020-06-23 09:16] LABS: Hematocrit 29.5 % (30.3-42.9); Hemoglobin 9.8 gm/dl (10.1-14.3)
--- NOTE | 2020-06-23 11:46 | Progress Note ---
Assessment and Plan A: S/P Asymptomatic anemia P: Continue routine pp care Fe prescribed D/C home tomm if stable Subjective - Subjective Date of service: 06/23/20 Principal diagnosis: S/P Patient reports: appetite normal, voiding normally, pain well controlled, ambulating normally Fence: doing well, bottle feeding Objective - Vital Signs Latest vital signs: Vital Signs Temp Pulse Resp BP BP Pulse Ox 06/23/20 09:20 97.9 F 90 18 117/71 98 06/23/20 01:17 98.2 F 97 H 20 114/69 98 06/22/20 21:19 18 06/22/20 21:08 99.1 F 101 H 18 114/71 98 06/22/20 20:14 108 H 130/59 06/22/20 19:59 110 H 129/65 06/22/20 19:44 104 H 132/69 06/22/20 19:29 109 H 138/68 06/22/20 19:28 99.9 F H 109 H 17 138/68 06/22/20 19:14 114 H 141/65 06/22/20 18:59 112 H 131/64 06/22/20 18:54 123 H 131/84 06/22/20 18:49 113 H 130/60 06/22/20 18:44 130 H 156/69 06/22/20 18:35 134 H 246/135 06/22/20 18:30 129 H 136/75 06/22/20 18:24 127 H 126/60 06/22/20 18:15 115 H 121/60 06/22/20 18:09 112 H 116/66 06/22/20 18:04 112 H 111/54 06/22/20 17:59 108 H 117/68 06/22/20 17:54 110 H 94/54 06/22/20 17:49 109 H 106/56 06/22/20 17:44 103 H 112/59 06/22/20 17:39 101 H 103/56 06/22/20 17:35 103 H 118/60 06/22/20 17:29 113 H 106/56 06/22/20 17:25 104 H 116/63 06/22/20 17:19 103 H 126/59 06/22/20 17:14 121 H 127/57 06/22/20 17:09 108 H 112/59 06/22/20 17:04 116 H 118/66 06/22/20 12:06 116 H 99 06/22/20 12:01 117 H 100 06/22/20 11:56 113 H 99 06/22/20 11:51 116 H 100 06/22/20 11:46 125 H 99 Intake and Output 06/22/20 06/23/20 06/23/20 22:59 06:59 14:59 Intake Total 643.333 Output Total 500 600 Balance 143.333 -600 Intake: IV 163.333 PITOCin/NS 30 UNIT/500ML 163.333 30 units In 500 ml @ 2 mls/hr IV TITR BARBRA Rx#: [id number] Oral 480 Output: Urine 500 600 Void 500 600 Other: Total, Intake Amount 480 Total, Output Amount 500 600 # Voids Void 1 3 Estimated Blood Loss 100 - Exam Breasts: Present: normal Abdomen: Present: normal appearance, soft, normal bowel sounds Vulva: both: normal Uterus: Present: normal, firm, fundal height below umbilicus Extremities: Present: normal - Labs Labs: Abnormal lab results 06/23/20 Range/Units 08:45 Hgb 9.8 L (10.1-14.3) gm/dl Hct 29.5 L (30.3-42.9) %
[2020-06-24] MEDS: IBUPROFEN 600 MG TAB PO SCH ×3 (00:07→12:31)
[2020-06-24] MEDS: FERROUS SULFATE 325 MG TAB PO SCH ×2 (00:08→10:35)
[2020-06-24] MEDS: oxyCODONE /ACETAMINOPHEN 5-325MG TAB PO PRN ×2 (02:20→09:06)
--- NOTE | 2020-06-24 08:44 | Discharge Summary ---
Providers - Providers Date of Admission: 06/21/20 08:53 Date of discharge: 06/24/20 Attending physician: ANA DODSON MD Primary care physician: ANA DODSON MD Hospitalization Reason for admission: active labor, other (TOLAC) Delivery: Episiotomy: none Laceration: none Other procedures: none complications: none Discharge diagnosis: IUP at term delivered [place] baby: male Hospital course: Pt was admitted for a TOLAC. She had a w/o pp complications. See H&P, delivery summary, and pp notes. Condition at discharge: Stable Disposition: DC-01 TO HOME OR SELFCARE Plan - Discharge Medications Prescriptions: Ferrous Sulfate [Feosol 325 MG tab] 325 mg PO BID #120 tablet Ibuprofen [Motrin 600 MG tab] 600 mg PO Q6HR #30 tablet - Provider Discharge Summary Additional instructions: [] Smoking cessation referral if applicable(refer to patient education folder for contact #) [] Refer to [facility] Booklet Call your doctor immediately for: * Fever > 100.5 * Heavy vaginal bleeding ( >1 pad per hour) * Severe persistent headache * Shortness of breath * Reddened, hot, painful area to leg or breast * Drainage or odor from incision. * Keep incision clean and dry at all times and follow doctor's instructions regarding bathing/showering - Follow up plan Follow up: ANA DODSON MD [Primary Care Provider] - 6 Weeks
[2020-06-24] MEDS ORDERED: medroxyPROGESTERone ACETATE 150 MG/ML SYRINGE IM ONE (18:11)
[2020-06-24 18:28] VITALS: BP 125/82
== END 2020-06-24 18:20 | disposition home or self-care (01) | DRG 775 ==
LOC: TRG 08:23 → LD 08:25 → TRG 08:48 → LD 08:53 → OB 06-22 21:02
PROVIDERS: ADMIT Obstetrics & Gynecology; ATTEND Obstetrics & Gynecology
PROC: 10907ZC Drainage of Amniotic Fluid, Therapeutic from Products of Conception, Via Natural or Artificial Opening (ICD-10-PCS; 2020-06-21)
PROC: 10E0XZZ Delivery of Products of Conception, External Approach (ICD-10-PCS; principal; 2020-06-22)
PROC: 3E0R3BZ Introduction of Anesthetic Agent into Spinal Canal, Percutaneous Approach (ICD-10-PCS; 2020-06-22)
PROC: 00HU33Z Insertion of Infusion Device into Spinal Canal, Percutaneous Approach (ICD-10-PCS; 2020-06-22)
PROC: 10H07YZ Insertion of Other Device into Products of Conception, Via Natural or Artificial Opening (ICD-10-PCS; 2020-06-22)
PROC: 3E0234Z Introduction of Serum, Toxoid and Vaccine into Muscle, Percutaneous Approach (ICD-10-PCS; 2020-06-23)
DX: O69.1XX0 Labor and delivery complicated by cord around neck, with compression, not applicable or unspecified (principal); O99.02 Anemia complicating childbirth; Z20.822 Contact with and (suspected) exposure to COVID-19; O34.211 Maternal care for low transverse scar from previous cesarean delivery; O99.334 Smoking (tobacco) complicating childbirth; F17.200 Nicotine dependence, unspecified, uncomplicated; Z3A.39 39 weeks gestation of pregnancy; Z37.0 Single live birth
CPT/HCPCS: 36415; 76815; 85014; 85018; 85027; 86850; 86900; 86901; G0378; J1050; J1200; J2590; J7120; U0003